=== PATIENT | female | born 1950 | race Caucasian/White ===

== ENCOUNTER → 2023-08-06 08:44 | Outpatient (REF) | payer MEDICARE, SELFPAY ==
[2023-08-06 10:01] LABS: % Eosinophils 4.6 % (0-6); % Immature Granulocytes 0.5 % (0-0.5); % Monocytes 7.4 % (1.7-9.3); % Neutrophils 57.5 % (42.2-75.2); Absolute Basophils 0.1 10^3/uL (0-0.2); Absolute Eosinophils 0.3 10^3/uL (0-0.7); Absolute Lymphocytes 1.7 10^3/uL (1.2-3.4); Absolute Monocytes 0.4 10^3/uL (0.1-0.6); Absolute Neutrophils 3.4 10^3/uL (1.4-6.5); Hematocrit 40.7 % (37.0-47.0); Hemoglobin 13.5 g/dL (12.0-16.0); Mean Corp Hgb Conc. 33.2 g/dL (33.0-37.0); Mean Corpuscular Hgb 30.5 pg (27.0-31.0); Mean Corpuscular Volume 92.1 fL (81.0-99.0); Mean Platelet Volume 9.5 fL (7.4-10.4); Nucleated Red Blood Cells % 0 %; Platelet Count 244 10^3/uL (130-400); Red Blood Cell Count 4.42 10^6/uL (4.20-5.40); Red Cell Dist. Width 12.2 % (11.5-14.5); White Blood Cell Count 5.9 10^3/uL (4.8-10.8)
[2023-08-06 10:02] LABS: INR 1.04; PT 13.5 Sec (11.4-14.6)
[2023-08-06 10:41] LABS: Vitamin D, 25-OH*** 22.9 ng/mL (30-80)
[2023-08-06 10:59] LABS: ALT (SGPT) 28 U/L (0-35); AST (SGOT) 32 U/L (14-36); Albumin 4.5 g/dl (3.5-5.0); Alkaline Phosphatase 166 U/L (38-126); Blood Urea Nitrogen 19 mg/dl (7-17); Calcium 9.9 mg/dl (8.4-10.2); Carbon Dioxide 25 mmol/L (22-30); Chloride 105 mmol/L (98-107); GGTP 49 U/L (12-43); Glucose 98 mg/dl (70-99); Potassium 4.5 mmol/L (3.5-5.1); Sodium 138 mmol/L (135-145); Total Bilirubin 0.7 mg/dl (0.2-1.3); Total Protein 7.5 g/dl (6.3-8.2); eGFR 58.75
== END ==
LOC: REG 08:44
PROVIDERS: ATTENDING PHYSICIAN Internal Medicine Transplant Hepatology; FAMILY PHYSICIAN Family Medicine
DX: K74.3 Primary biliary cirrhosis (principal)
CPT/HCPCS: 36415; 80053; 82306; 82977; 84446; 84590; 85025; 85610

== ENCOUNTER 2023-08-26 10:13 | Emergency (ER) | payer MEDICARE, SELFPAY ==
[2023-08-26 10:14] VITALS: BMI 34.0
[2023-08-26 10:18] VITALS: BP 194/87
[2023-08-26 10:42] VITALS: BP 164/63
--- NOTE | 2023-08-26 10:50 | ED.GENMED ---
History of Present Illness
General
Chief Complaint: Musculo-Skeletal Complaint
Source: patient
Exam Limitations: none
Time Seen by Provider: 08/26/23 10:22
Nursing documentation reviewed up to this point in time: agreed with
Travel History
Have you had any contact with someone who has COVID-19?: No
Do you have any symptoms of coronavirus? Fever > 100 degrees, chills, cough, shortness of breath, sore throat, loss of taste or smell, muscle aches, or headache?: No
History of Present Illness
History of Present Illness:
73-year-old female past medical history of hypertension hyperlipidemia presenting to the emergency department today with concerns of discomfort near her hip after she sneezed yesterday morning felt an abrupt pain to the right anterior hip region.
Has been able to ambulate but has had persistent discomfort pain made worse when she is doing a sit up position and improving when walking and upright.
Past History
Past History
ED Past Medical History: HTN, Hypercholesterolemia and Other (primary biliary cirrhosis )
ED Past Surgical History: Gynecological (R beast lumpectomy 01/25/19)
Social History
Tobacco: Non-smoker
Personal:
Living: with family
Employment: Retired
Review of Systems
Review of Systems
Allergies reviewed?: Yes
All Other Systems: ROS reviewed and negative except as documented in HPI and ROS
Phy Exam
Physical Exam
Physical Exam:
GENERAL: Alert , in no apparent distress
EYE: pupils equal and reactive
NECK: Supple, no significant adenopathy.
ENT: o/p clr, mmm.
CARDIAC: Regular rate and rhythm .
LUNGS: Clear breath sounds bilaterally, no acute respiratory distress, no wheezes/rales/rhonchi
ABDOMEN: Soft, without focal tenderness, no r/g, no cvat
NEUROLOGICAL: Alert and oriented, no focal neuro deficits
SKIN: Warm and dry, skin intact.
MUSCULOSKELETAL: No significant reproducible pain to the right hip good range of motion and strength to the right hip no redness or warmth no edema, well perfused.
PSYCH: Normal and appropriate interaction.
Course
Orders/Labs/Results
Orders:
Orders
08/26/23 10:26
Hip, Right 2-3 Views [CR Hip - RT w/wo Pel 2-3 Vw*] Urgent
Comment:
Reason For Exam: right hip
Include a pelvis x-ray?: Yes
Vital Signs
Initial and Last Documented VS:
Initial Vital Signs
Temp Pulse Resp BP Pulse Ox
98.1 F 84 18 194/87 97
08/26/23 10:18 08/26/23 10:18 08/26/23 10:18 08/26/23 10:18 08/26/23 10:18
Last Documented Vital Signs
Temp Pulse Resp BP Pulse Ox
98.1 F 84 18 164/63 97
08/26/23 10:18 08/26/23 10:18 08/26/23 10:18 08/26/23 10:42 08/26/23 10:18
MDM/Problems Addressed
MDM/Problems Addressed:
73-year-old female presenting to the emergency department today with concerns of right-sided hip discomfort after sneezing yesterday morning has been able to ambulate denies numbness weakness nausea vomiting. No redness or warmth good range of
motion and able to ambulate here no abdominal pain. Patient with likely strain no signs of bony abnormality advised for outpatient follow-up as needed. Return precautions given.
*Critical Care Note
Total Time (30-74mins, 75-104mins- exclusive of procedures): Not Applicable
ED Attending Note
-
Portions of this chart may have been created with voice recognition software.� Occasional wrong word or��sound alike� substitutions may have occurred due to the inherent limitations of voice recognition software.
Discharge Plan
Departure
Patient Disposition: Home (Routine Discharge)
Date of Disposition: 08/26/23
Time of Disposition: 11:03
Patient with high blood pressure during this ER visit?: No
Condition: Good
Covid-19: Not Applicable
Discharge Problem:
Acute pain of right hip
Instructions: Muscle and Bone Pain (DC)
Prescriptions:
No Action
colestipol 1 GM tablet
2 tab PO BID
rosuvastatin 5 MG tablet
5 mg PO MOWEFR
ursodiol 500 MG tablet
500 tab PO BID
Calcium 500-Vit D3 600 Tablet
1 tab PO DAILY
mupirocin 1 APPLIC ointment
1 applic intranasal BID Qty: 1 0RF
sennosides [senna] 1 TABLET tablet
2 tab PO BID 0RF
magnesium hydroxide 30 ML suspension
30 ml PO DAILYPRN PRN (Reason: constipation) 0RF
aspirin 325 MG tablet,delayed release (DR/EC)
325 mg PO DAILY 0RF
docusate sodium 100 MG capsule
100 mg PO BID 0RF
ibuprofen [Advil] 200 MG tablet
400 mg PO BID Qty: 1 0RF
Rx Instructions:
TAKE WITH FOOD
DO NOT TAKE WITHIN 2 HOURS OF ASA
TAKE BEFORE THERAPY WITH OXYCODONE
amlodipine [Norvasc] 10 MG tablet
10 mg PO DAILY Qty: 0 0RF
Rx Instructions:
HOLD SYSTOLIC BLOOD PRESSURE <130
losartan 100 MG tablet
100 mg PO DAILY Qty: 0 0RF
Rx Instructions:
HOLD SYSTOLIC BLOOD PRESSURE <130
oxycodone 5 MG tablet
5 mg PO Q4HPRN PRN (Reason: moderate-severe pain) Qty: 35 0RF
Rx Instructions:
1 tab moderate pain or 2 if pain severe
dx tka
ongoing therapy
famotidine 20 MG tablet
20 mg PO HS Qty: 30 0RF
hydromorphone 2 MG tablet
2 mg PO Q4HPRN PRN (Reason: pain>4/10) Qty: 30 0RF
hydroxyzine HCl 25 MG tablet
25 mg PO QIDPRN PRN (Reason: itching rash) Qty: 15 0RF
Referrals:
UNKNOWN - PT NOT,INTERVIEWE [Family Provider] -
Activity Restrictions/Additional Instructions:
You came to the emergency department today with concerns of right-sided hip discomfort. Here your x-ray was normal. This is likely a strain to the area. Please rest and ice the area hopefully symptoms will improve over the next few days. Return
to the emergency department for any worsening, new or concerning symptoms.
Interventions
Interventions:
*Risk Screen - Suicide Last Done: 08/26/23 10:23
*General Assessment Last Done: 08/26/23 10:23
*Neglect/Abuse Screening Last Done: 08/26/23 10:23
*ED COVID-19 Vaccine History Last Done: 08/26/23 10:23
ED-Musculoskeletal Assessment Last Done: 08/26/23 10:42
Discharge Date and Time
Print Language: YI
== END 2023-08-26 11:16 | disposition home or self-care (01) ==
LOC: EMR 10:13
PROVIDERS: EMERGENCY PHYSICIAN Emergency Medicine
DX: M25.551 Pain in right hip (principal); I10 Essential (primary) hypertension; E78.00 Pure hypercholesterolemia, unspecified; K74.3 Primary biliary cirrhosis; M19.90 Unspecified osteoarthritis, unspecified site; Z79.82 Long term (current) use of aspirin; Z85.3 Personal history of malignant neoplasm of breast; Z88.6 Allergy status to analgesic agent; Z88.0 Allergy status to penicillin
CPT/HCPCS: 99283; 73502

== ENCOUNTER 2023-09-25 05:33 | Emergency (ER) | payer MEDICARE, SELFPAY ==
[2023-09-25 05:59] VITALS: BP 157/73
--- NOTE | 2023-09-25 07:34 | ED.GENMED ---
History of Present Illness
General
Chief Complaint: Dizziness
Source: patient and family
Exam Limitations: none
Time Seen by Provider: 09/25/23 07:07
Nursing documentation reviewed up to this point in time: agreed with
History of Present Illness
History of Present Illness:
The pt is a 73F coming in for room spinning dizziness starting this AM. Worse with movement, Now resolved. No vomiting, pain, CP/SOB,
Past History
Past History
ED Past Medical History: HTN, Hypercholesterolemia and Other (primary biliary cirrhosis )
ED Past Surgical History: Gynecological (R beast lumpectomy 01/25/19)
Social History
Tobacco: Non-smoker
Personal:
Living: with family
Employment: Retired
Review of Systems
Review of Systems
Allergies reviewed?: Yes
All Other Systems: ROS reviewed and negative except as documented in HPI and ROS
Phy Exam
Physical Exam
Physical Exam:
Physical Exam
Physical Exam:
GENERAL: Alert , in no apparent distress
EYE: pupils equal and reactive
NECK: No redness or warmth No fluctuance or induration supple, no significant adenopathy.
ENT: o/p clr, mmm.
CARDIAC: Regular rate and rhythm .
LUNGS: Clear breath sounds bilaterally, no acute respiratory distress, no wheezes/rales/rhonchi
ABDOMEN: Soft, without focal tenderness, no r/g, no cvat
NEUROLOGICAL: Alert and oriented, no focal neuro deficits
SKIN: Warm and dry, skin intact.
MUSCULOSKELETAL: No edema, well perfused.
PSYCH: Normal and appropriate interaction.
Course
Orders/Labs/Results
Orders:
Orders
09/25/23 07:28
Electrocardiogram (*1) Stat
Reason for Study: Other
Other Reason for Exam: Headache
CT Head W/o Iv Contrast Urgent
Comment:
Reason For Exam: dizziness, off balance
EKG- Treatment ONCE
09/25/23 07:50
Complete Blood Count/With Diff Urgent
Comprehensive Metabolic Panel Urgent
Abnormal Lab Results
09/25/23
07:50
Abs Immat Gran (auto) 0.1 H 10^3/uL
(0-0.05)
Immature Gran % 0.6 H %
(0-0.5)
Glucose 110 H mg/dl
(70-99)
Alkaline Phosphatase 160 H U/L
(38-126)
09/25/23 07:50
09/25/23 07:50
Vital Signs
Initial and Last Documented VS:
Initial Vital Signs
Temp Pulse Resp BP Pulse Ox
98.4 F 66 20 157/73 99
09/25/23 05:59 09/25/23 05:59 09/25/23 05:59 09/25/23 05:59 09/25/23 05:59
Last Documented Vital Signs
Temp Pulse Resp BP Pulse Ox
98.4 F 67 20 149/64 96
09/25/23 05:59 09/25/23 10:00 09/25/23 10:00 09/25/23 10:00 09/25/23 10:00
MDM/Problems Addressed
MDM/Problems Addressed:
73F coming in for room spinning dizziness. now resolved. Was worse with movement and position. normal labs/head CT here. Ambulating normally. No ongoing issues. Potentially episode of vertigo, now resolved no emergent findings. Stable for DC
return precautions given.
*Critical Care Note
Total Time (30-74mins, 75-104mins- exclusive of procedures): Not Applicable
ED Attending Note
-
Portions of this chart may have been created with voice recognition software.� Occasional wrong word or��sound alike� substitutions may have occurred due to the inherent limitations of voice recognition software.
Discharge Plan
Departure
Patient Disposition: Home (Routine Discharge)
Date of Disposition: 09/25/23
Time of Disposition: 09:55
Patient with high blood pressure during this ER visit?: No
Condition: Good
Covid-19: Not Applicable
Discharge Problem:
Dizziness
Instructions: Dizziness
Prescriptions:
No Action
colestipol 1 GM tablet
2 tab PO BID
rosuvastatin 5 MG tablet
5 mg PO MOWEFR
Patient Comments:
09/25/23: patient states she forgot to take Thursday(09/23/23) dose, so she took a dose on (09/24/23).
ursodiol 500 MG tablet
500 tab PO BID
Rx Instructions:
take morning dose with 250mg for total of 750mg
amlodipine [Norvasc] 10 MG tablet
10 mg PO DAILY Qty: 0 0RF
losartan 100 MG tablet
100 mg PO DAILY Qty: 0 0RF
alendronate 70 mg Tablet
70 mg PO PALMA
aspirin 81 mg Tablet,Delayed Release (Dr/Ec)
81 mg PO HS
ursodiol 250 mg Tablet
250 mg PO DAILY
Rx Instructions:
take with morning dose of 500mg for total of 750mg
metoprolol succinate 25 mg Tablet Extended Release 24 Hr
25 mg PO BID
ergocalciferol (vitamin D2) [Vitamin D2] 1,250 mcg (50,000 unit) Capsule
1,250 mcg PO FR
letrozole 2.5 mg Tablet
2.5 mg PO HS
Fish Oil 500 mg Capsule
500 mg PO DAILY
Referrals:
Kalpana Tabares MD [Family Provider] -
Activity Restrictions/Additional Instructions:
You came to the ER with concerns of dizziness. Here you had resolution of symptoms a normal exam and normal CT scan/labs. Please follow closely with your primary care doctor. Return immediately for any worsening or progressive symptoms.
Interventions
Interventions:
*General Assessment Last Done: 09/25/23 07:56
*Neglect/Abuse Screening Last Done: 09/25/23 07:56
ED- Fall Risk Assessment Last Done: 09/25/23 07:54
*ED COVID-19 Vaccine History Last Done: 09/25/23 07:56
*Nursing Disposition Last Done: 09/25/23 10:10
ED- Neurological Assessment Last Done: 09/25/23 07:54
ED Swallowing Screen Last Done: 09/25/23 07:54
Discharge Date and Time
Discharge Date/Time: 09/25/23 10:11
Print Language: NIUEAN
[2023-09-25 07:54] VITALS: BP 174/67
[2023-09-25 08:15] LABS: % Basophils 0.9 % (0-2); % Eosinophils 1.6 % (0-6); % Immature Granulocytes 0.6 % (0-0.5); % Lymphocytes 21.6 % (20.5-51.1); % Monocytes 6.3 % (1.7-9.3); Absolute Basophils 0.1 10^3/uL (0-0.2); Absolute Eosinophils 0.1 10^3/uL (0-0.7); Absolute Immature Granulocytes 0.1 10^3/uL (0-0.05); Absolute Lymphocytes 1.7 10^3/uL (1.2-3.4); Absolute Monocytes 0.5 10^3/uL (0.1-0.6); Absolute Neutrophils 5.5 10^3/uL (1.4-6.5); Hematocrit 38.3 % (37.0-47.0); Hemoglobin 13.3 g/dL (12.0-16.0); Mean Corp Hgb Conc. 34.7 g/dL (33.0-37.0); Mean Corpuscular Hgb 30.7 pg (27.0-31.0); Mean Corpuscular Volume 88.5 fL (81.0-99.0); Mean Platelet Volume 9.5 fL (7.4-10.4); Nucleated Red Blood Cells % 0 %; Platelet Count 249 10^3/uL (130-400); Red Blood Cell Count 4.33 10^6/uL (4.20-5.40); Red Cell Dist. Width 12.6 % (11.5-14.5)
[2023-09-25 08:25] LABS: ALT (SGPT) 23 U/L (0-35); AST (SGOT) 24 U/L (14-36); Albumin 4.6 g/dl (3.5-5.0); Alkaline Phosphatase 160 U/L (38-126); Blood Urea Nitrogen 16 mg/dl (7-17); Calcium 9.6 mg/dl (8.4-10.2); Carbon Dioxide 22 mmol/L (22-30); Chloride 106 mmol/L (98-107); Glucose 110 mg/dl (70-99); Potassium 4.2 mmol/L (3.5-5.1); Sodium 138 mmol/L (135-145); Total Bilirubin 0.7 mg/dl (0.2-1.3); Total Protein 7.5 g/dl (6.3-8.2); eGFR > 60.00
[2023-09-25 10:00] VITALS: BP 149/64
== END 2023-09-25 10:11 | disposition home or self-care (01) ==
LOC: EMR 05:33
PROVIDERS: Physician Assistant; EMERGENCY PHYSICIAN Emergency Medicine; FAMILY PHYSICIAN Family Medicine
DX: R42 Dizziness and giddiness (principal); W19.XXXA Unspecified fall, initial encounter; E78.00 Pure hypercholesterolemia, unspecified; I10 Essential (primary) hypertension; K74.3 Primary biliary cirrhosis; M19.90 Unspecified osteoarthritis, unspecified site; Z96.651 Presence of right artificial knee joint; Z79.82 Long term (current) use of aspirin; Z85.3 Personal history of malignant neoplasm of breast; Z88.0 Allergy status to penicillin
CPT/HCPCS: 99284; 70450; 80053; 85025; 93005

== ENCOUNTER → 2023-11-03 09:01 | Outpatient (REF) | payer MEDICARE, SELFPAY ==
[2023-11-03 09:45] LABS: % Basophils 0.9 % (0-2); % Eosinophils 3.4 % (0-6); % Immature Granulocytes 0.6 % (0-0.5); % Lymphocytes 30.5 % (20.5-51.1); % Monocytes 8.1 % (1.7-9.3); % Neutrophils 56.5 % (42.2-75.2); Absolute Basophils 0.1 10^3/uL (0-0.2); Absolute Eosinophils 0.2 10^3/uL (0-0.7); Absolute Monocytes 0.5 10^3/uL (0.1-0.6); Absolute Neutrophils 3.7 10^3/uL (1.4-6.5); Hematocrit 38.3 % (37.0-47.0); Hemoglobin 13.3 g/dL (12.0-16.0); Mean Corp Hgb Conc. 34.7 g/dL (33.0-37.0); Mean Corpuscular Hgb 31.5 pg (27.0-31.0); Mean Corpuscular Volume 90.8 fL (81.0-99.0); Mean Platelet Volume 9.7 fL (7.4-10.4); Nucleated Red Blood Cells % 0 %; Platelet Count 237 10^3/uL (130-400); Red Blood Cell Count 4.22 10^6/uL (4.20-5.40); Red Cell Dist. Width 12.8 % (11.5-14.5); White Blood Cell Count 6.6 10^3/uL (4.8-10.8)
[2023-11-03 10:20] LABS: ALT (SGPT) 26 U/L (0-35); AST (SGOT) 29 U/L (14-36); Albumin 4.6 g/dl (3.5-5.0); Alkaline Phosphatase 156 U/L (38-126); Blood Urea Nitrogen 19 mg/dl (7-17); Calcium 10.1 mg/dl (8.4-10.2); Carbon Dioxide 25 mmol/L (22-30); Chloride 102 mmol/L (98-107); GGTP 50 U/L (12-43); Glucose 96 mg/dl (70-99); Sodium 138 mmol/L (135-145); Total Bilirubin 0.9 mg/dl (0.2-1.3); Total Protein 7.3 g/dl (6.3-8.2); eGFR 58.75
[2023-11-03 10:26] LABS: Potassium 4.7 mmol/L (3.5-5.1)
== END ==
LOC: REG 09:01
PROVIDERS: ATTENDING PHYSICIAN Internal Medicine Transplant Hepatology; FAMILY PHYSICIAN Family Medicine
DX: K74.3 Primary biliary cirrhosis (principal); E21.3 Hyperparathyroidism, unspecified
CPT/HCPCS: 36415; 80053; 82977; 85025; 85610

== ENCOUNTER 2023-11-16 06:30 | Day surgery (SDC) | payer MEDICARE, SELFPAY ==
[2023-11-16 08:11] VITALS: BP 141/64
[2023-11-16 08:17] VITALS: BMI 33.9
[2023-11-16 10:08] VITALS: BP 107/61
[2023-11-16 10:18] VITALS: BP 107/94
[2023-11-16 10:31] VITALS: BP 128/67
== END 2023-11-16 10:48 | disposition home or self-care (01) ==
LOC: SDS 06:30
PROVIDERS: ATTENDING PHYSICIAN Internal Medicine
PROC: 0DBH8ZX Excision of Cecum, Via Natural or Artificial Opening Endoscopic, Diagnostic (ICD-10-PCS; 2023-11-16)
PROC: 0DBL8ZX Excision of Transverse Colon, Via Natural or Artificial Opening Endoscopic, Diagnostic (ICD-10-PCS; 2023-11-16)
PROC: 0DBK8ZX Excision of Ascending Colon, Via Natural or Artificial Opening Endoscopic, Diagnostic (ICD-10-PCS; 2023-11-16)
PROC: 0DBN8ZX Excision of Sigmoid Colon, Via Natural or Artificial Opening Endoscopic, Diagnostic (ICD-10-PCS; 2023-11-16)
DX: Z12.11 Encounter for screening for malignant neoplasm of colon (principal); Z87.19 Personal history of other diseases of the digestive system; Z80.0 Family history of malignant neoplasm of digestive organs; K64.8 Other hemorrhoids; D12.0 Benign neoplasm of cecum; D12.2 Benign neoplasm of ascending colon; D12.3 Benign neoplasm of transverse colon; D12.7 Benign neoplasm of rectosigmoid junction
CPT/HCPCS: 45385; 45380; 88305

== ENCOUNTER → 2023-12-30 08:19 | Outpatient (REF) | payer MEDICARE, SELFPAY | LOC: WDC 08:19 | PROVIDERS: ATTENDING PHYSICIAN Family Medicine Geriatric Medicine; FAMILY PHYSICIAN Family Medicine | DX: Z12.31 Encounter for screening mammogram for malignant neoplasm of breast (principal); Z12.39 Encounter for other screening for malignant neoplasm of breast; Z85.3 Personal history of malignant neoplasm of breast; C50.411 Malignant neoplasm of upper-outer quadrant of right female breast; Z17.0 Estrogen receptor positive status [ER+] | CPT/HCPCS: 77063; 77067 ==

== ENCOUNTER → 2024-01-22 07:25 | Outpatient (REF) | payer MEDICARE, SELFPAY ==
[2024-01-22 08:31] LABS: % Basophils 1.2 % (0-2); % Eosinophils 4.8 % (0-6); % Immature Granulocytes 0.5 % (0-0.5); % Lymphocytes 32.5 % (20.5-51.1); % Monocytes 8.9 % (1.7-9.3); % Neutrophils 52.1 % (42.2-75.2); Absolute Basophils 0.1 10^3/uL (0-0.2); Absolute Eosinophils 0.3 10^3/uL (0-0.7); Absolute Lymphocytes 1.9 10^3/uL (1.2-3.4); Absolute Monocytes 0.5 10^3/uL (0.1-0.6); Hematocrit 39.1 % (37.0-47.0); Hemoglobin 13.6 g/dL (12.0-16.0); Mean Corp Hgb Conc. 34.8 g/dL (33.0-37.0); Mean Corpuscular Hgb 31.6 pg (27.0-31.0); Mean Corpuscular Volume 90.9 fL (81.0-99.0); Mean Platelet Volume 9.5 fL (7.4-10.4); Nucleated Red Blood Cells % 0 %; Platelet Count 251 10^3/uL (130-400); Red Cell Dist. Width 12.4 % (11.5-14.5); White Blood Cell Count 5.8 10^3/uL (4.8-10.8)
[2024-01-22 08:55] LABS: Urine Albumin Negative (Neg - Trace); Urine Bilirubin Negative (Negative); Urine Character Clear (Clear); Urine Color Yellow; Urine Glucose Negative (Negative); Urine Ketone Negative (Negative); Urine Leukocyte Negative (Negative); Urine Nitrite Negative (Negative); Urine Occult Blood Negative (Negative); Urine Specific Gravity 1.015 (<1.030); Urine Urobilinogen Negative (Neg - 1+)
[2024-01-22 09:01] LABS: ALT (SGPT) 23 U/L (0-35); AST (SGOT) 24 U/L (14-36); Albumin 4.7 g/dl (3.5-5.0); Alkaline Phosphatase 155 U/L (38-126); Blood Urea Nitrogen 19 mg/dl (7-17); Calcium 9.8 mg/dl (8.4-10.2); Carbon Dioxide 22 mmol/L (22-30); Chloride 104 mmol/L (98-107); Glucose 95 mg/dl (70-99); HDL Cholesterol 78 mg/dl; LDL Cholesterol, Calculated 115 mg/dl; Potassium 4.5 mmol/L (3.5-5.1); Sodium 140 mmol/L (135-145); Total Bilirubin 0.7 mg/dl (0.2-1.3); Total Cholesterol 221 mg/dl (50-199); Total Protein 7.8 g/dl (6.3-8.2); Triglyceride 142 mg/dl (10-149); Very Low Density Lipoprotein 28 mg/dl (0-30); eGFR 58.75
[2024-01-22 09:15] LABS: Free T4 0.89 ng/dl (0.78-2.19); Vitamin D, 25-OH*** 30.6 ng/mL (30-80)
[2024-01-22 09:29] LABS: TSH 5.67 uIU/ml (0.47-4.68)
[2024-01-22 10:46] LABS: Glycohemoglobin (HgbA1c) 5.5 % (4.0-5.6)
[2024-01-23 15:08] LABS: Intact PTH 94.8 pg/ml (13.6-85.8)
== END ==
LOC: REG 07:25
PROVIDERS: ATTENDING PHYSICIAN Family Medicine
DX: E55.9 Vitamin D deficiency, unspecified (principal); I10 Essential (primary) hypertension; C50.411 Malignant neoplasm of upper-outer quadrant of right female breast; K74.3 Primary biliary cirrhosis; D03.8 Melanoma in situ of other sites; E03.8 Other specified hypothyroidism; E78.2 Mixed hyperlipidemia; R73.01 Impaired fasting glucose; E21.0 Primary hyperparathyroidism
CPT/HCPCS: 36415; 80053; 80061; 81003; 82306; 83036; 83970; 84439; 84443; 85025

== ENCOUNTER → 2024-02-26 07:19 | Outpatient (REF) | payer MEDICARE, SELFPAY ==
[2024-02-26 08:11] LABS: Ionized Calcium 1.25 mMOL/L (1.15-1.33)
[2024-02-26 09:00] LABS: ALT (SGPT) 22 U/L (0-35); AST (SGOT) 24 U/L (14-36); Albumin 4.3 g/dl (3.5-5.0); Alkaline Phosphatase 137 U/L (38-126); Blood Urea Nitrogen 17 mg/dl (7-17); Calcium 9.5 mg/dl (8.4-10.2); Carbon Dioxide 27 mmol/L (22-30); Chloride 103 mmol/L (98-107); Glucose 95 mg/dl (70-99); Potassium 4.4 mmol/L (3.5-5.1); Sodium 137 mmol/L (135-145); Total Bilirubin 0.6 mg/dl (0.2-1.3); Total Protein 7.1 g/dl (6.3-8.2); eGFR > 60.00
[2024-02-26 09:06] LABS: Vitamin D, 25-OH*** 20.1 ng/mL (30-80)
[2024-02-26 09:20] LABS: TSH 6.33 uIU/ml (0.47-4.68)
[2024-02-27 09:58] LABS: Intact PTH 101.7 pg/ml (13.6-85.8)
== END ==
LOC: REG 07:19
PROVIDERS: ATTENDING PHYSICIAN Internal Medicine Endocrinology, Diabetes & Metabolism; FAMILY PHYSICIAN Family Medicine
DX: E03.9 Hypothyroidism, unspecified (principal); E55.9 Vitamin D deficiency, unspecified
CPT/HCPCS: 36415; 80053; 82306; 82330; 83970; 84443

== ENCOUNTER → 2024-04-26 09:00 | Outpatient (REF) | payer MEDICARE, SELFPAY ==
[2024-04-26 09:47] LABS: % Basophils 1.1 % (0-2); % Eosinophils 4.4 % (0-6); % Immature Granulocytes 0.3 % (0-0.5); % Lymphocytes 35.5 % (20.5-51.1); % Monocytes 7.3 % (1.7-9.3); % Neutrophils 51.4 % (42.2-75.2); Absolute Basophils 0.1 10^3/uL (0-0.2); Absolute Eosinophils 0.3 10^3/uL (0-0.7); Absolute Lymphocytes 2.2 10^3/uL (1.2-3.4); Absolute Monocytes 0.5 10^3/uL (0.1-0.6); Absolute Neutrophils 3.2 10^3/uL (1.4-6.5); Hemoglobin 13.5 g/dL (12.0-16.0); Mean Corp Hgb Conc. 33.8 g/dL (33.0-37.0); Mean Corpuscular Hgb 30.5 pg (27.0-31.0); Mean Corpuscular Volume 90.5 fL (81.0-99.0); Mean Platelet Volume 9.5 fL (7.4-10.4); Nucleated Red Blood Cells % 0 %; Platelet Count 240 10^3/uL (130-400); Red Blood Cell Count 4.42 10^6/uL (4.20-5.40); Red Cell Dist. Width 12.6 % (11.5-14.5); White Blood Cell Count 6.2 10^3/uL (4.8-10.8)
[2024-04-26 09:56] LABS: INR 0.97; PT 13.2 Sec (11.4-14.6)
[2024-04-26 10:11] LABS: ALT (SGPT) 25 U/L (0-35); AST (SGOT) 25 U/L (14-36); Albumin 4.5 g/dl (3.5-5.0); Alkaline Phosphatase 150 U/L (38-126); Blood Urea Nitrogen 18 mg/dl (7-17); Calcium 9.8 mg/dl (8.4-10.2); Carbon Dioxide 26 mmol/L (22-30); Chloride 103 mmol/L (98-107); GGTP 43 U/L (12-43); Glucose 98 mg/dl (70-99); Potassium 4.2 mmol/L (3.5-5.1); Sodium 137 mmol/L (135-145); Total Bilirubin 0.8 mg/dl (0.2-1.3); Total Protein 7.6 g/dl (6.3-8.2); eGFR > 60.00
== END ==
LOC: REG 09:00
PROVIDERS: ATTENDING PHYSICIAN Internal Medicine Transplant Hepatology; FAMILY PHYSICIAN Family Medicine
DX: K74.3 Primary biliary cirrhosis (principal)
CPT/HCPCS: 36415; 80053; 82977; 85025; 85610

== ENCOUNTER → 2024-08-05 09:38 | Outpatient (REF) | payer MEDICARE, SELFPAY | LOC: RAD 09:38 | PROVIDERS: ATTENDING PHYSICIAN Family Medicine | DX: M79.671 Pain in right foot (principal) | CPT/HCPCS: 73630 ==

== ENCOUNTER → 2025-01-02 14:35 | Outpatient (REF) | payer MEDICARE, SELFPAY | LOC: WDC 14:35 | PROVIDERS: ATTENDING PHYSICIAN Obstetrics & Gynecology; FAMILY PHYSICIAN Family Medicine | DX: Z12.39 Encounter for other screening for malignant neoplasm of breast (principal); M81.0 Age-related osteoporosis without current pathological fracture; Z12.31 Encounter for screening mammogram for malignant neoplasm of breast | CPT/HCPCS: 77063; 77067; 77080; 77081 ==

== ENCOUNTER → 2025-03-07 07:35 | Outpatient (REF) | payer MEDICARE, SELFPAY ==
[2025-03-07 08:12] LABS: Urine Character Clear (Clear)
[2025-03-07 08:31] LABS: Hematocrit 40.9 % (37.0-47.0); Hemoglobin 13.8 g/dL (12.0-16.0); Mean Corp Hgb Conc. 33.7 g/dL (33.0-37.0); Mean Corpuscular Volume 91.3 fL (81.0-99.0); Nucleated Red Blood Cells % 0 %; Platelet Count 261 10^3/uL (130-400); Red Cell Dist. Width 12.3 % (11.5-14.5)
[2025-03-07 08:52] LABS: Urine Red Blood Cell 0-2 /HPF (0-2)
[2025-03-07 09:03] LABS: ALT (SGPT) 22 U/L (0-35); AST (SGOT) 23 U/L (14-36); Albumin 4.6 g/dl (3.5-5.0); Alkaline Phosphatase 158 U/L (38-126); Blood Urea Nitrogen 20 mg/dl (7-17); Calcium 9.6 mg/dl (8.4-10.2); Carbon Dioxide 22 mmol/L (22-30); Chloride 103 mmol/L (98-107); Glucose 96 mg/dl (70-99); HDL Cholesterol 66 mg/dl; LDL Cholesterol, Calculated 114 mg/dl; Potassium 4.4 mmol/L (3.5-5.1); Sodium 135 mmol/L (135-145); Total Protein 7.5 g/dl (6.3-8.2); Very Low Density Lipoprotein 25 mg/dl (0-30); eGFR 58.39
[2025-03-07 09:17] LABS: Vitamin D, 25-OH*** 39.0 ng/mL (30-80)
[2025-03-07 09:30] LABS: TSH 6.83 uIU/ml (0.47-4.68)
== END ==
LOC: REG 07:35
PROVIDERS: ATTENDING PHYSICIAN Internal Medicine Endocrinology, Diabetes & Metabolism; FAMILY PHYSICIAN Family Medicine
DX: E03.9 Hypothyroidism, unspecified (principal); E55.9 Vitamin D deficiency, unspecified; I10 Essential (primary) hypertension; E78.2 Mixed hyperlipidemia; M85.89 Other specified disorders of bone density and structure, multiple sites; E21.0 Primary hyperparathyroidism; E03.8 Other specified hypothyroidism; K74.3 Primary biliary cirrhosis
CPT/HCPCS: 36415; 80053; 80061; 81003; 81015; 82306; 82330; 83970; 84439; 84443; 85025